=== PATIENT | female | born 1965 | race Caucasian/White ===

== ENCOUNTER → 2016-06-23 | Day surgery (SDC) | payer BC ==
[~2016-06-23] MED LIST: CELECOXIB200 MG PO; ESTRACE 2MG. TAB2 MG PO
--- NOTE | 2016-06-23 10:02 | Operative Note ---
Colonoscopy ([facility]) Procedure date: 06/23/16 Date of : 61 Procedure:Colonoscopy Colonoscopy with cold biopsies Indications: Mrs. Hui is a 50-year-old female who is here for evaluation of her chronic diarrhea. This began in January 2016 with biologic drug called Limbral for rheumatoid arthritis. She stopped this for a couple of days and things did improve. She was having intermittent symptoms of diarrhea until May 2016 when she developed more significant diarrhea that occurs up to 10 times daily. She has bowel urgency and frequency. She has lost 13 pounds. She reports no abdominal pain, rectal bleeding, bloating or gassiness. She reports no family history of colitis, Crohn's disease or colon cancer. This is her first colonoscopy performed for diagnostic purposes. Performing Provider: Silvia Kirby MD Referrring Provider: Patrick Borges M.D. Sedation: Fentanyl [default value]/Versed[default value] Procedure: Prior to the procedure, a history and physical exam was performed, and patient medications and allergies were reviewed. The risks and benefits of the procedure and the sedation options and risks were discussed with the patient. All questions were answered and informed consent was obtained. Patient identification and proposed procedure were verified by the physician and the nurse. The patient was placed in a left lateral decubitus position. Throughout the procedure, the patient's blood pressure, pulse, and oxygen saturations were monitored continuously. Findings: On digital rectal examination there was normal rectal tone. There were no external hemorrhoids. The colonoscope was introduced through the anal canal to the rectum and advanced to the cecum. The ileocecal valve and appendiceal orifice were identified. The scope was advanced a short distance into the ileum which appeared grossly normal. The scope was then withdrawn into the colon. The cecum, ascending, transverse, descending, sigmoid and rectum were grossly normal. Cold biopsies were taken from the RIGHT colon 4 to rule out microscopic (lymphocytic colitis). There were no mucosal abnormalities identified. Upon retroflexion within the rectum there were grade 1 internal hemorrhoids. Impressions: 1. Normal colonoscopy with intubation of the terminal ileum 2. Grade 1 internal hemorrhoids Recommendations: I will follow up the biopsies to rule out microscopic (lymphocytic) colitis. We will discuss additional treatment options after biopsies have returned. Complications: None EBL (ml): 0 at 1002
[2016-06-23 13:18] VITALS: BP 106/53
== END ==
LOC: SDC 08:53
PROVIDERS: Internal Medicine Gastroenterology
PROC: 0DBF8ZX Excision of Right Large Intestine, Via Natural or Artificial Opening Endoscopic, Diagnostic (ICD-10-PCS; principal; 2016-06-23 10:00)
DX: R19.7 Diarrhea, unspecified (principal); T50.995A Adverse effect of other drugs, medicaments and biological substances, initial encounter; K64.0 First degree hemorrhoids

== ENCOUNTER → 2016-06-27 | Outpatient (CLI) | payer BC ==
--- NOTE | 2016-07-01 12:48 | RADIOLOGY REPORT PS360 ---
DIG MAMM-SCREEN [facility] W/CAD CAD Screening COMPARISON: Digital mammograms 06/01/2015 INDICATION: There is a history of breast cancer in patient's mother diagnosed at age 48. There is been previous biopsy left breast. TECHNIQUE: Standard CC and MLO images were obtained. R2 CAD reviewed. FINDINGS: Moderate diffuse scattered fibroglandular densities are seen throughout both breasts. There are stable benign-appearing calcifications and a biopsy clip left breast. There is no suspicious lesion and there are no suspicious microcalcifications. IMPRESSION: Stable exam with no suspicious lesion seen recommend yearly follow-up BI-RADS CATEGORY: 2_Benign RECOMMENDED FOLLOWUP: 12M 12 MONTH FOLLOW-UP (A letter has been sent to the patient regarding results of the study.)
== END ==
LOC: RAD 06-17 09:30
DX: Z12.31 Encounter for screening mammogram for malignant neoplasm of breast (principal)
CPT/HCPCS: G0202

== ENCOUNTER → 2016-08-27 | Outpatient (CLI) | payer BC ==
[2016-08-27 16:42] LABS: HEMOGLOBIN 13.5 g/dL (12.2-16.2); LYMPH # 2.4 K/mm3 (0.7-4.5); LYMPH % 30.3 % (10-50.0)
[2016-08-27 18:17] LABS: BUN 21 mg/dL (7-18)
[2016-08-27 18:30] LABS: GFR (ESTIMATED) 88 ML/MIN (59-)
[2016-08-29 09:38] LABS: Iron 62 ug/dL (27-159); Iron Saturation 14 % (15-55); UIBC 386 ug/dL (131-425); Vitamin B12 323 pg/mL (211-946)
[2016-08-29 16:37] LABS: t-Transglutaminase (tTG) IgA <2 U/mL (0-3)
[2016-09-02 20:39] LABS: 1,25-Dihydroxy, Vitamin D-2 <10 pg/mL (.); 1,25-Dihydroxy, Vitamin D-3 59 pg/mL (.); Total 1,25-Dihydroxy,Vitamin D 59 pg/mL (.)
[2016-09-05 08:26] LABS: RETICULIN IGA ANTIBODIES <1:2.5 TITER (<1:10)
== END ==
LOC: LAB 16:02
PROVIDERS: Nurse Practitioner Acute Care
DX: K52.839 Microscopic colitis, unspecified (principal); R63.4 Abnormal weight loss; Z68.20 Body mass index [BMI] 20.0-20.9, adult